=== PATIENT | female | born 1990 | race Two or more races ===

== ENCOUNTER 2018-05-16 14:17 | Emergency (ER) | payer MEDICAID ==
[~2018-05-16] VITALS: Ht 162.6 cm; Wt 79.4 kg
[2018-05-16 14:48] VITALS: BP 133/99
[2018-05-16] MEDS ORDERED: SODIUM CHLORIDE 0.9% 1,000 ML IVB ONE (14:53)
[2018-05-16] MEDS ORDERED: ONDANSETRON HCL 4 MG/2 ML VIAL IV ONE (15:00)
== END 2018-05-16 15:15 | disposition left against medical advice (07) ==
LOC: ER 14:19
DX: N39.0 Urinary tract infection, site not specified (principal); R42 Dizziness and giddiness; R11.0 Nausea; Z53.21 Procedure and treatment not carried out due to patient leaving prior to being seen by health care provider